=== PATIENT | male | born 1970 | race African-American/Black ===

== ENCOUNTER 2020-03-24 05:15 | Day surgery (SDC) | payer OTHER ==
[2020-03-23 14:01] VITALS: BMI 29.6
[2020-03-24] MEDS ORDERED: PROPOFOL 20 ML ONE (12:52)
[2020-03-24] MEDS ORDERED: MIDAZOLAM HCL 2 MG/2 ML SINGLE DOSE VIAL ONE (12:52)
[2020-03-24] MEDS ORDERED: LIDOCAINE HCL/PF 2% SDV 5ML VIAL ONE (12:53)
--- NOTE | 2020-03-24 13:08 | HP ---
History & Physical Update - History History: No Change - Physical Physical: No Change - Assessment Assessment: No Change - Plan Plan: No Change
--- NOTE | 2020-03-24 13:11 | OP ---
Operative Note - Note: Operative Date: 03/24/20 Pre-Operative Diagnosis: painful R epididymal nodule/spermatocele Operation: exc of R epididymal nodule/spermatocelectomy Findings: R epididymal tail ~ 1 cm nodule Post-Operative Diagnosis: Same as Pre-op Surgeon: Atif Olmedo Anesthesiologist/CLOTH FINISHING RANGE TENDER: Jay Swanson Anesthesia: General, Local Specimens Removed: R epididymal nodule Estimated Blood Loss (mls): 0 Operative Report Dictated: Yes
[2020-03-24] MEDS ORDERED: ceFAZolin SODIUM 1 GM VIAL IVPB ONE (13:30)
[2020-03-24] MEDS ORDERED: BUPIVACAINE HCL/PF 0.5% (5MG/ML) 10 ML VIAL NR ONE (13:36)
[2020-03-24 15:59] VITALS: BP 123/78; PULSE 72; TEMP 97.8
--- NOTE | 2020-03-24 16:17 | OP ---
DATE OF OPERATION: 03/24/2020 PREOPERATIVE DIAGNOSIS: Right epididymal nodule. POSTOPERATIVE DIAGNOSIS: Right epididymal nodule. PROCEDURE: Excision of right epididymal nodule. SURGEON: Atif Brock MD SUPPLIER MANAGER: None. ANESTHESIA: General via laryngeal mask plus local. ANESTHESIOLOGIST: Evan Dobson MD SPECIMENS: Right epididymal nodule. CULTURES: None. DRAINS: None. ESTIMATED BLOOD LOSS: None. COMPLICATION: None. PROCEDURE: Patient was brought into the operating room, placed on the operating table in the supine position. After administration of general anesthesia and intravenous antibiotics, patient was placed in the supine position. Genitals were prepped and draped in the usual sterile manner. Ten mL of 0.5% Marcaine were injected into the neck of the scrotum into the spermatic cord for cord block. A right hemiscrotal transverse incision was made for a distance of approximately 5 cm. This was carried down to the underlying dartos layer. The tunica vaginalis was opened. The testicle and epididymis were delivered through the wound. The right epididymal tail nodule was identified, dissected out with sharp and blunt dissection. The cut ends of the epididymis were ligated with 0 Vicryl ligatures. The specimen was excised, sent to Pathology. Hemostasis was assured with electrocautery. The parietal tunica vaginalis was closed over the epididymal defect. The testicle and epididymis were replaced into the scrotum. Hemostasis was reassured. The wound was closed in layers, closing the dartos layer with a running 3-0 Vicryl suture. The skin was closed with interrupted 4-0 chromic vertical mattress sutures and Dermabond. Wound was sterilely dressed with fluffs and a scrotal support. He tolerated the procedure well, transferred to the recovery room in stable condition. ATIF BROCK M.D. [id number]
--- NOTE | 2020-04-01 14:21 | PATH ---
Surgical Pathology Report Patient Name: LEATHA SEBASTIAN Med. Rec. #: [id number] /Age/Gender: 1970 (Age: 49) / M Account: [id number] Location: [facility] SURGICAL Taken: 03/24/2020 Received: 03/25/2020 Reported: 04/01/2020 Physicians: Atif Olmedo M.D. Specimen(s) Received RIGHT EPIDIDYMAL NODULE Clinical History Right spermatocele of epididymis Final Diagnosis EPIDIDYMAL NODULE, RIGHT, EXCISION: BENIGN CYST WITH SURROUNDING PATCHY MILD ACUTE AND CHRONIC INFLAMMATION, HISTIOCYTIC INFILTRATE, AND ASSOCIATED DYSTROPHIC CALCIFICATIONS. NO EPITHELIAL LINING IDENTIFIED. NO SPERMATOZOA IDENTIFIED PAS AND IRON SPECIAL STAINS ARE NEGATIVE. Comment: Suggest clinical correlation. Electronically Signed Aurora Broussard M.D. Gross Description Received in formalin labeled "right epididymal nodule," is a 1.7 x 1.2 x 0.9 cm fuentes, rubbery nodule. The specimen is inked blue and serially sectioned. Sectioning reveals heterogeneous fuentes cystic parenchyma. The specimen is entirely submitted in one cassette. 03/25/2020 [facility]03/25/2020
== END 2020-03-24 16:00 | disposition home or self-care (01) ==
LOC: JASU-SURG 05:15
PROVIDERS: ATTEND Urology
PROC: 0VBF0ZZ Excision of Right Spermatic Cord, Open Approach (ICD-10-PCS; principal; 2020-03-24 13:00)
DX: N50.89 Other specified disorders of the male genital organs (principal)
CPT/HCPCS: 88305-TC; 88313-TC; 94760